=== PATIENT | male | born 1950 | race Caucasian/White ===

== ENCOUNTER 2021-10-12 08:15 | Inpatient (IN) | payer OTHER, SELFPAY ==
[~2021-10-12] VITALS: Ht 182.9 cm; Wt 88.5 kg
[2021-10-12 08:15] VITALS: BP_SYST 150
[~2021-10-12 08:15] MED LIST: ativan; cymbalta; seroquel
[2021-10-12 08:44] LABS: BASOPHILS % (AUTO) 0.8 % (0.0-2.0); EOSINOPHILS # (AUTO) 0.1 K/uL (0.0-0.4); EOSINOPHILS % (AUTO) 2.8 % (0.0-4.0); HEMATOCRIT 46.9 % (36-54); HEMOGLOBIN 16.2 g/dL (14.0-18.0); LYMPHOCYTES # (AUTO) 2.1 K/uL (1.0-5.5); LYMPHOCYTES % (AUTO) 41.1 % (20.5-51.5); MEAN CORPUSCULAR HEMOGLOBIN 32 pg (27-31); MEAN CORPUSCULAR HGB CONC 35 % (32-36); MEAN CORPUSCULAR VOLUME 94 fL (79.0-98.0); MONOCYTES # (AUTO) 0.5 K/uL (0.0-1.0); MONOCYTES % (AUTO) 9.1 % (1.7-9.3); NEUTROPHILS # (AUTO) 2.3 K/uL (1.8-7.7); NEUTROPHILS % (AUTO) 46.2 % (40.0-70.0); PLATELET COUNT (AUTO) 192 K/uL (130-430); RED BLOOD CELL COUNT(AUTO) 5.01 MIL/uL (4.2-6.2); RED CELL DISTRIBUTION WIDTH 12.4 % (9.0-15.0)
[2021-10-12] MEDS ORDERED: LORazepam 2 MG/ML VIAL IVP ONE (08:45)
[2021-10-12] MEDS ORDERED: DILTIAZEM HCL 25 MG/5 ML VIAL IVP ONE (08:45)
[2021-10-12 08:57] LABS: ANION GAP 7 (5-15); CALCIUM 9.3 mg/dL (8.4-11.0); CHLORIDE 101 mmol/L (98-107); GLUCOSE 132 mg/dL (70-99); SODIUM SERUM 138 mmol/L (136-145); UREA NITROGEN, BLOOD 17 mg/dL (8-21)
[2021-10-12 08:59] LABS: GFR AFRICAN AMERICAN 123 mL/min (>90); POTASSIUM 3.9 mmol/L (3.5-5.1)
[2021-10-12 09:05] LABS: PROTHROMBIN TIME 10.9 SECS (9.5-12.5)
[2021-10-12 09:11] LABS: ALANINE AMINOTRANSFERASE 19 U/L (12-78); ALBUMIN 3.6 g/dL (3.4-4.8); ASPARTATE AMINOTRANSFERASE 23 U/L (10-37); PHOSPHORUS 3.4 mg/dL (2.7-4.5); THYROID STIMULATING HORMONE 1.37 uIu/mL (0.36-3.74); TOTAL BILIRUBIN 0.5 mg/dL (0.0-1.0)
[2021-10-12] MEDS ORDERED: BUSP10TA3 PO (09:22)
[2021-10-12] MEDS ORDERED: TRAZ-251 PO (09:22)
[2021-10-12] MEDS ORDERED: DICL75TA5 PO (09:22)
[2021-10-12] MEDS ORDERED: ARIP10TA9 PO (09:22)
[2021-10-12] MEDS ORDERED: LAM100 PO (09:22)
[2021-10-12] MEDS ORDERED: OMEP40CA20 PO (09:22)
[2021-10-12] MEDS ORDERED: DIVA500T4 PO (09:22)
[2021-10-12] MEDS: DIVALPROEX SODIUM 500 MG TAB.SR.24H (DEPAKOTE ER) PO SCH (11:15)
[2021-10-12] MEDS ORDERED: DILTIAZEM HCL 30 MG TABLET PO ONE (11:15)
[2021-10-12] MEDS ORDERED: ARIPiprazole 5 MG TAB PO ONE (11:15)
[2021-10-12] MEDS ORDERED: BANANA BAG 1 EA, FOLIC ACID 1 MG, THIAMINE HCL 100 MG, MAGNESIUM SULFATE 1 GM, MVI 10 M... IV SCH ×5 (11:15)
[2021-10-12 11:54] VITALS: BP_SYST 139
[2021-10-12 12:10] VITALS: BP_SYST 139
[2021-10-12] MEDS: LORazepam 2 MG/ML VIAL IVP PRN ×2 (12:29→22:20)
[2021-10-12] MEDS: THIAMINE HCL 100 MG, MAGNESIUM SULFATE 1 GM in NS 100 ML IV SCH (12:35)
[2021-10-12] MEDS: FOLIC ACID 1 MG, MVI 10 ML in NACL 0.9% 1,000 ML IV SCH (12:35)
[2021-10-12] MEDS ORDERED: DIVALPROEX SODIUM 250 MG TABLET(DEPAKOTE) PO ONE (12:39)
[2021-10-12] MEDS ORDERED: chlordiazePOXIDE HCL 25 MG CAPSULE ONE ×2 (12:40→20:14)
[2021-10-12] MEDS ORDERED: ASPIRIN 81 MG TABLET(ECOTRIN) PO ONE (15:15)
[2021-10-12 16:11] VITALS: BP_SYST 103
[2021-10-12] MEDS ORDERED: traZODone HCL 50 MG TABLET (DESYREL) PO SCH (18:00)
[2021-10-12 18:04] VITALS: BP_SYST 103
[2021-10-12 20:00] VITALS: BP_SYST 113
[2021-10-12] MEDS: busPIRone HCL 5 MG TABLET PO SCH (20:19)
[2021-10-12] MEDS: LamoTRIgine 100 MG TABLET PO SCH (20:20)
[2021-10-12] MEDS: DILTIAZEM HCL 30 MG TABLET PO SCH (22:16)
[2021-10-13] VITALS: BP_SYST 119
[2021-10-13] MEDS: DILTIAZEM HCL 30 MG TABLET PO SCH (06:34)
[2021-10-13] MEDS: busPIRone HCL 5 MG TABLET PO SCH (07:51)
[2021-10-13] MEDS: LamoTRIgine 100 MG TABLET PO SCH (07:51)
[2021-10-13] MEDS: DIVALPROEX SODIUM 500 MG TAB.SR.24H (DEPAKOTE ER) PO SCH (07:51)
[2021-10-13] MEDS ORDERED: PANTOPRAZOLE SODIUM 40 MG TAB PO SCH (09:00)
[2021-10-13] MEDS ORDERED: ARIPiprazole 5 MG TAB PO SCH (09:00)
[2021-10-13] MEDS ORDERED: ASPIRIN 81 MG TABLET(ECOTRIN) PO SCH (09:00)
[2021-10-13 09:27] VITALS: BP_SYST 141
[2021-10-13 09:28] VITALS: BP_SYST 141
[2021-10-13] MEDS: LORazepam 2 MG/ML VIAL IVP PRN (12:03)
[2021-10-13] MEDS: FOLIC ACID 1 MG, MVI 10 ML in NACL 0.9% 1,000 ML IV SCH (12:28)
[2021-10-13] MEDS: THIAMINE HCL 100 MG, MAGNESIUM SULFATE 1 GM in NS 100 ML IV SCH (12:31)
[2021-10-13 12:34] VITALS: BP_SYST 133
[2021-10-13 14:01] VITALS: BP_SYST 133
[2021-10-13] MEDS ORDERED: RIVA20TA PO (14:10)
[2021-10-13] MEDS ORDERED: DILT120C21 PO (14:10)
[2021-10-13] MEDS ORDERED: DILTIAZEM HCL 120 MG CAP.SR.24H PO ONE (14:30)
[2021-10-13] MEDS ORDERED: RIVAROXABAN 10 MG TABLET PO SCH (18:00)
[2021-10-14] MEDS ORDERED: DILTIAZEM HCL 120 MG CAP.SR.24H PO SCH (09:00)
== END 2021-10-13 14:35 | disposition home or self-care (01) | DRG 310 ==
LOC: SED 08:15 → STU 09:50
PROVIDERS: ADMIT Internal Medicine Hospice and Palliative Medicine; ATTEND Internal Medicine Hospice and Palliative Medicine
DX: I48.91 Unspecified atrial fibrillation (principal); Z20.822 Contact with and (suspected) exposure to COVID-19; G89.29 Other chronic pain; F41.9 Anxiety disorder, unspecified; F10.20 Alcohol dependence, uncomplicated; F17.210 Nicotine dependence, cigarettes, uncomplicated; I11.9 Hypertensive heart disease without heart failure; F31.9 Bipolar disorder, unspecified; Z79.899 Other long term (current) drug therapy; Z90.79 Acquired absence of other genital organ(s); Z85.46 Personal history of malignant neoplasm of prostate; Z71.41 Alcohol abuse counseling and surveillance of alcoholic; Z71.6 Tobacco abuse counseling
CPT/HCPCS: 36415; 71045; 80053; 83735; 84100; 84443; 84484; 85025; 85610-TC; 85730-TC; 93005; 93306; 96374; 96375; 99291; G0378; J2060; J3411; J3475; J3490; J7030

== ENCOUNTER 2021-12-15 12:13 | Emergency (ER) | payer OTHER, SELFPAY ==
[~2021-12-15] VITALS: Ht 172.7 cm; Wt 77.1 kg
[~2021-12-15 12:13] MED LIST changes: +ARIP10TA9 PO; +BUSP10TA3 PO; +DILT120C21 PO; +DIVA500T4 PO; +LAM100 PO; +OMEP40CA20 PO; +RIVA20TA PO; +TRAZ-251 PO
[2021-12-15 12:17] VITALS: BP_SYST 143
--- NOTE | 2021-12-15 12:25 | NUR ---
Pt brought by Kathryn HILLIARD&Ox4, pt presents to ER with weakness at 700 am, pt c/o mild numbness on L hand today at 700 am,pt denies any symptoms at this time , skin pink and warm , cap refill <3, VSS.
[2021-12-15 12:54] LABS: BASOPHILS % (AUTO) 0.6 % (0.0-2.0); EOSINOPHILS % (AUTO) 0.6 % (0.0-4.0); HEMATOCRIT 42.5 % (36-54); HEMOGLOBIN 14.6 g/dL (14.0-18.0); LYMPHOCYTES # (AUTO) 1.9 K/uL (1.0-5.5); LYMPHOCYTES % (AUTO) 43.7 % (20.5-51.5); MEAN CORPUSCULAR HEMOGLOBIN 32 pg (27-31); MEAN CORPUSCULAR HGB CONC 35 % (32-36); MEAN CORPUSCULAR VOLUME 92 fL (79.0-98.0); MONOCYTES # (AUTO) 0.3 K/uL (0.0-1.0); MONOCYTES % (AUTO) 7.6 % (1.7-9.3); NEUTROPHILS # (AUTO) 2.1 K/uL (1.8-7.7); NEUTROPHILS % (AUTO) 47.5 % (40.0-70.0); PLATELET COUNT (AUTO) 185 K/uL (130-430); RED CELL DISTRIBUTION WIDTH 12.5 % (9.0-15.0); WHITE BLOOD COUNT (AUTO) 4.4 K/uL (4.8-10.8)
[2021-12-15 13:06] LABS: INR 1.6 (0.80-1.20)
[2021-12-15 13:07] LABS: CALCIUM 8.6 mg/dL (8.4-11.0); CREATININE 0.7 mg/dL (0.55-1.30); POTASSIUM 3.9 mmol/L (3.5-5.1)
[2021-12-15 13:13] LABS: ALBUMIN 3.3 g/dL (3.4-4.8); TOTAL BILIRUBIN 0.4 mg/dL (0.0-1.0)
--- NOTE | 2021-12-15 13:40 | NUR ---
Pt A&Ox4, VSS , respirations even and unlabored.
--- NOTE | 2021-12-15 15:40 | NUR ---
Dr Thacker evaluating patient at bedside
[2021-12-15 15:45] VITALS: BP_SYST 164
--- NOTE | 2021-12-15 16:01 | NUR ---
Patient does not wish to proceed with medical care recommended by Dr Thacker . Patient given information related to possible complications, up to and including , which could occur as a result of leaving hospital at this time. Patient verbalizes understanding of risks involved leaving against medical advice. Patient has signed AMA form.
== END 2021-12-15 16:01 | disposition left against medical advice (07) ==
LOC: SED 12:13
DX: R53.1 Weakness (principal); R42 Dizziness and giddiness
CPT/HCPCS: 36415; 71045; 80053; 85025; 85610-TC; 93005; 99285

== ENCOUNTER 2023-03-19 22:37 | Emergency (ER) | payer OTHER ==
[~2023-03-19] VITALS: Ht 182.9 cm; Wt 93.4 kg
[2023-03-19 22:44] VITALS: BP_SYST 139
--- NOTE | 2023-03-19 22:44 | NUR ---
Triaged and placed patient in ER CHAIR 1 for evaluation. Report given to VALENTINA RN for continuity of care. VSS, no acute respiratory distress noted at this time. Instructed to notify ED staff for any changes in condition or worsening of symptoms. Patient verbalized understanding.
--- NOTE | 2023-03-19 22:48 | NUR ---
Dr. Francis is at bedside examining the patient.
[2023-03-19] MEDS ORDERED: FAMOTIDINE 20 MG TABLET PO ONE (23:00)
[2023-03-19] MEDS ORDERED: predniSONE 20 MG TABLET PO ONE (23:00)
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
[2023-03-19] MEDS ORDERED: PRED20TA PO (23:51)
--- NOTE | 2023-03-19 23:59 | NUR ---
Patient given written and verbal discharge instructions and verbalizes understanding. ER MD discussed with patient the results and treatment provided. Patient in stable condition. ID arm band removed. Rx of Prednisone given. Patient educated on pain management and to follow up with PMD. Pain Scale 0/10. Opportunity for questions provided and answered. Medication side effect fact sheet provided.
[2023-03-20] VITALS: BP_SYST 146
== END 2023-03-20 | disposition home or self-care (01) ==
LOC: SED 22:37
DX: T63.441A Toxic effect of venom of bees, accidental (unintentional), initial encounter (principal); Z79.899 Other long term (current) drug therapy; Y92.89 Other specified places as the place of occurrence of the external cause; Y93.89 Activity, other specified; Y99.8 Other external cause status
CPT/HCPCS: 99283; J7512

== ENCOUNTER 2023-05-19 19:20 | Emergency (ER) | payer OTHER ==
[~2023-05-19] VITALS: Ht 182.9 cm; Wt 90.7 kg
[~2023-05-19 19:20] MED LIST changes: +PRED20TA PO
[2023-05-19 19:31] VITALS: BP_SYST 138
--- NOTE | 2023-05-19 19:31 | NUR ---
Patient triaged and placed in waiting room. VSS and patient appears in no acute distress at this time. Accompanied by SELF, awaiting available bed, and MD notified of need for MSE.
--- NOTE | 2023-05-19 22:15 | NUR ---
called for bed placement na
--- NOTE | 2023-05-19 22:29 | NUR ---
called for CT scan. No Answer
--- NOTE | 2023-05-19 22:45 | NUR ---
called for bed placement no answer. patient lwbs
== END 2023-05-19 22:45 | disposition left against medical advice (07) ==
LOC: SED 19:20
DX: R10.9 Unspecified abdominal pain (principal); Z53.21 Procedure and treatment not carried out due to patient leaving prior to being seen by health care provider
CPT/HCPCS: 99281